=== PATIENT | female | born 1990 | race Caucasian/White ===

== ENCOUNTER 2016-09-25 22:17 | Emergency (ER) | payer OTHER ==
[~2016-09-25] VITALS: Ht 165.1 cm; Wt 47.9 kg
[2016-09-25 22:33] VITALS: BP 119/97
[2016-09-25 22:58] LABS: MCH 33.8 PG (29.0-34.0); MCHC 35.1 G/DL (30.0-36.0); MCV 96.2 FL (83-99); RBC DIS.WIDTH-CV 11.9 % (11.8-14.6); RBC DIS.WIDTH-SD 42.4 % (39-53); WHITE BLOOD COUNT 11.5 K/uL (4.1-10.2)
[2016-09-25 23:17] LABS: CHLORIDE 93 mEq/L (99-109); POTASSIUM 3.2 mEq/L (3.7-5.4); SODIUM 137 mEq/L (136-147)
[2016-09-25 23:19] LABS: GLUCOSE 85 mg/dL (70-99)
[2016-09-25 23:21] LABS: ANION GAP 25 MEQ/L (2-14)
[2016-09-25 23:23] LABS: GFR ESTIMATE (CALCULATED) > 59 mL/min/
[2016-09-25 23:24] LABS: TROP-I INTERPRETATION NEGATIVE; TROPONIN-I < 0.01 ng/mL (0.0-0.30); UREA NITROGEN (BUN) 8 mg/dL (9-23)
[2016-09-26 00:27] LABS: PLAT.SUFFICIENCY ADEQUATE
[2016-09-26 00:28] LABS: PLATELET CLUMPS PRESENT
== END 2016-09-25 23:56 | disposition left against medical advice (07) ==
LOC: EME 22:17 → EXP 22:17
DX: R10.9 Unspecified abdominal pain (principal); R63.4 Abnormal weight loss; R11.2 Nausea with vomiting, unspecified; R06.02 Shortness of breath; R53.1 Weakness; R53.83 Other fatigue; Z68.1 Body mass index [BMI] 19.9 or less, adult; F17.200 Nicotine dependence, unspecified, uncomplicated
CPT/HCPCS: 71020; 80048; 81003; 84484; 85027; 93005; 99281; 99283